=== PATIENT | female | born 1950 | race Caucasian/White ===

== ENCOUNTER 2021-11-15 09:06 | Outpatient (CLI) | payer OTHER | END 2021-11-15 09:07 | disposition home or self-care (01) | LOC: NM 09:06 | PROVIDERS: ATTEND Family Medicine | DX: R06.02 Shortness of breath (principal); I10 Essential (primary) hypertension | CPT/HCPCS: 78452; 93017; A9500 ==

== ENCOUNTER 2022-06-20 12:33 | Outpatient (CLI) | payer MEDICARE ==
[2022-06-20 15:06] LABS: #Eosinphils 0.2 10x3/uL (0.0-0.5); #Monocytes 0.5 10x3/uL (0.0-1.1); #Neutrophils 3.3 10x3/uL (1.5-8.4); %Basophils 0.8 % (0.0-2.0); %Eosinophils 3.7 % (0.0-6.0); %Lymphocytes 20.5 % (18.0-47.0); %Monocytes 10.5 % (0.0-10.0); %Neutrophils 64.1 % (40.0-75.0); Hemoglobin 9.8 g/dL (12.0-15.5); Mean Corpuscular HGB CONC 31.1 g/dL (32.0-36.0); Mean Corpuscular Volume 73.8 fl (81.6-98.3); Mean Platelet Volume 9.5 fl (7.4-10.4); Platelet Count 282 10x3/uL (150-450); RBC Distribution Width 15.9 % (11.5-14.5); Red Blood Cell (RBC) Count 4.27 10x6/uL (3.90-5.03); White Blood Cell (WBC) Count 5.1 10x3/uL (3.5-10.5)
[2022-06-20 15:29] LABS: Anion Gap 17 mmol/L (10-20); BUN (Urea Nitrogen) 16 mg/dL (9.8-20.1); Calc. Creatinine Clearance 0 mL/min (70-130); Calcium 9.7 mg/dL (7.8-10.44); Carbon Dioxide 21 mmol/L (23-31); Chloride 109 mmol/L (98-107); Estimated GFR 79; Glucose 78 mg/dL (83-110); Potassium 4.3 mmol/L (3.5-5.1); Sodium 143 mmol/L (136-145)
[2022-06-20 19:51] LABS: Hemoglobin A1c 5.3 % (4.0-6.0)
== END 2022-06-20 12:34 | disposition home or self-care (01) ==
LOC: LABBT 12:33
PROVIDERS: ATTEND Specialist
DX: Z01.818 Encounter for other preprocedural examination (principal); K44.9 Diaphragmatic hernia without obstruction or gangrene
CPT/HCPCS: 80048; 83036; 85025; 93005; 93010

== ENCOUNTER 2022-06-26 06:02 | Observation (INO) | payer MEDICARE ==
[2022-06-26] MEDS ORDERED: Ketorolac Tromethamine 30 MG/ML VIAL ONE ×2 (06:21→12:05)
[2022-06-26] MEDS ORDERED: CEFAZOLIN 2 GM VIAL ONE (06:21)
[2022-06-26] MEDS ORDERED: Lidocaine 1% MPF 2 ML VIAL ONE (06:21)
[2022-06-26] MEDS ORDERED: Sodium Chloride 0.9% 100 ML ONE (06:21)
[2022-06-26] MEDS ORDERED: Acetaminophen 500 MG TAB ONE (06:21)
[2022-06-26] MEDS ORDERED: Fentanyl 250 MCG/5 ML VIAL ONE (06:33)
[2022-06-26] MEDS ORDERED: Bupivacaine/Epinephrine 0.25% 30 ML VIAL ONE (06:47)
[2022-06-26 07:34] LABS: SARS-CoV-2 NAA Rapid Test Not Detected (NotDetected)
[2022-06-26] MEDS ORDERED: Dexamethasone 20 MG/5 ML VIAL ONE (07:42)
[2022-06-26] MEDS ORDERED: ePHEDrine 50 MG/ML VIAL ONE (07:42)
[2022-06-26] MEDS ORDERED: PHENYLEPHRINE-NS 100 MCG/ML 10 ML SYRINGE ONE (07:42)
[2022-06-26] MEDS ORDERED: NEOSTIGMINE 3 MG/3 ML SYR 3 MG/3 ML SYRINGE ONE (07:42)
[2022-06-26] MEDS ORDERED: Lidocaine 1% PF 5 ML VIAL ONE (07:42)
[2022-06-26] MEDS ORDERED: Rocuronium Bromide 10 MG/ML (10ML VIAL) ONE (07:42)
[2022-06-26] MEDS ORDERED: Ondansetron PF 4 MG/2 ML Vial ONE (07:42)
[2022-06-26] MEDS ORDERED: PROPOFOL 200 MG/20 ML VIAL ONE (07:42)
[2022-06-26] MEDS ORDERED: Glycopyrrolate 0.2 MG/ML 5 ML SYRINGE ONE (07:42)
[2022-06-26] MEDS ORDERED: Dextrose 50% Abboject 50 ML SYRINGE SLOW IVP PRN (09:39)
[2022-06-26] MEDS ORDERED: Ipratropium/Albuterol 3 ML NEB NEB PRN (09:39)
[2022-06-26] MEDS ORDERED: hydrALAZINE 20 MG/ML VIAL SLOW IVP PRN (09:39)
[2022-06-26] MEDS ORDERED: Famotidine 20 MG TAB PO SCH (09:39)
[2022-06-26] MEDS ORDERED: Promethazine HCl 25 MG/ML VIAL IM PRN ×2 (09:39→09:46)
[2022-06-26] MEDS ORDERED: Morphine 2 MG/ML VIAL SLOW IVP PRN (09:39)
[2022-06-26] MEDS ORDERED: Mag-Al 1200 mg/1200 mg/30 ML UDCUP PO PRN (09:39)
[2022-06-26] MEDS ORDERED: Calcium Carbonate 500 MG ChewTAB PO PRN (09:39)
[2022-06-26] MEDS ORDERED: Ondansetron PF 4 MG/2 ML Vial IVP PRN (09:39)
[2022-06-26] MEDS ORDERED: Dextrose 5% in Water 1,000 ML IV PRN (09:39)
[2022-06-26] MEDS ORDERED: Morphine 4 MG/ML VIAL SLOW IVP PRN (09:39)
[2022-06-26] MEDS ORDERED: Ondansetron HCl/PF 4 MG/2 ML Vial IVP PRN (09:46)
[2022-06-26] MEDS ORDERED: Fentanyl 100 MCG/2 ML VIAL ONE ×2 (10:09→10:36)
[2022-06-26] MEDS ORDERED: HYDROmorphone 0.5 MG/0.5 ML SYRINGE ONE (11:32)
[2022-06-26] MEDS ORDERED: Sertraline 100 MG TAB PO SCH (12:00)
[2022-06-26] MEDS: Ketorolac Tromethamine 30 MG/ML VIAL IVP SCH ×3 (12:06→23:19)
[2022-06-26] MEDS ORDERED: HYDROcodone/Acetaminophen 10/325 mg Tablet ONE (13:54)
[2022-06-26] MEDS: HYDROcodone/Acetaminophen 10/325 mg Tablet PO PRN ×2 (13:57→20:18)
[2022-06-26 15:42] VITALS: BMI 31.3
[2022-06-26] MEDS: D5 1/2 NS w/20 mEq KCL 1,000 ML IV SCH ×2 (18:06→19:37)
[2022-06-26] MEDS: Famotidine/PF 20 mg/2ml Vial SLOW IVP SCH (20:16)
[2022-06-26] MEDS ORDERED: Rosuvastatin 10 MG TAB PO SCH (21:00)
[2022-06-26] MEDS ORDERED: Amlodipine 10 MG TAB PO SCH (21:00)
[2022-06-27] MEDS: D5 1/2 NS w/20 mEq KCL 1,000 ML IV SCH (04:12)
[2022-06-27] MEDS: HYDROcodone/Acetaminophen 10/325 mg Tablet PO PRN (05:12)
[2022-06-27] MEDS: Ketorolac Tromethamine 30 MG/ML VIAL IVP SCH (05:12)
[2022-06-27 06:34] LABS: #Eosinphils 0.1 thou/uL (0.0-0.7); #Monocytes 0.8 thou/uL (0.11-0.59); #Neutrophils 5.1 thou/uL (1.40-6.50); %Basophils 0.2 % (0.0-1.0); %Eosinophils 1.2 % (0.0-10.0); %Lymphocytes 14.9 % (21.0-51.0); %Neutrophils 72.7 % (42.0-75.0); Hemoglobin 8.5 g/dL (12.0-16.0); Mean Corpuscular HGB CONC 32.7 g/dL (32.0-36.0); Mean Corpuscular Hemoglobin 24.5 pg (27.0-31.0); Mean Corpuscular Volume 74.9 fl (78.0-98.0); Mean Platelet Volume 7.6 fL (7.4-10.4); Platelet Count 226 10x3/uL (130-400); RBC Distribution Width 15.4 % (11.5-14.5); Red Blood Cell (RBC) Count 3.48 mill/uL (4.20-5.40); White Blood Cell (WBC) Count 6.9 10x3/uL (4.8-10.8)
[2022-06-27 06:43] LABS: ALT (SGPT) 15 U/L (8-55); AST (SGOT) 27 U/L (5-34); Albumin 3.7 g/dL (3.4-4.8); Alkaline Phosphatase 54 U/L (40-110); Anion Gap 11 mmol/L (10-20); BUN (Urea Nitrogen) 15 mg/dL (9.8-20.1); Bilirubin, Total 0.2 mg/dL (0.2-1.2); Calc. Creatinine Clearance 78 mL/min (70-130); Calcium 8.2 mg/dL (7.8-10.44); Carbon Dioxide 23 mmol/L (23-31); Chloride 108 mmol/L (98-107); Estimated GFR 68; Globulin 1.9 g/dL (2.4-3.5); Glucose 102 mg/dL (83-110); Potassium 4.2 mmol/L (3.5-5.1); Protein, Total 5.6 g/dL (5.8-8.1); Sodium 138 mmol/L (136-145)
[2022-06-27] MEDS: Famotidine/PF 20 mg/2ml Vial SLOW IVP SCH (08:18)
[2022-06-27] MEDS ORDERED: Valsartan 80 MG TAB PO SCH (09:00)
[2022-06-27 12:34] VITALS: BP 128/90; TEMP 98.5
== END 2022-06-27 13:15 | disposition home or self-care (01) ==
LOC: SDC 06:02 → SJJU 15:37
PROVIDERS: ADMIT Specialist; ATTEND Specialist
PROC: 0BQT4ZZ Repair Diaphragm, Percutaneous Endoscopic Approach (ICD-10-PCS; principal; 2022-06-26)
PROC: 0DS64ZZ Reposition Stomach, Percutaneous Endoscopic Approach (ICD-10-PCS; 2022-06-26)
DX: K44.9 Diaphragmatic hernia without obstruction or gangrene (principal); K21.9 Gastro-esophageal reflux disease without esophagitis; M19.90 Unspecified osteoarthritis, unspecified site; E78.00 Pure hypercholesterolemia, unspecified; I10 Essential (primary) hypertension; Z87.891 Personal history of nicotine dependence; Z79.899 Other long term (current) drug therapy; Z88.2 Allergy status to sulfonamides; Z20.822 Contact with and (suspected) exposure to COVID-19
CPT/HCPCS: 43281; 80053; 85025; 96374; 96375; 96376 ×2; C1713 ×2; C1776 ×2; G0378 ×2; U0002; 36415; J1100; J1170; J1885; J2405; J2704; J3010; J3480; J3490; S0028